=== PATIENT | male | born 1955 | race Caucasian/White ===

== ENCOUNTER 2018-11-22 13:08 | Emergency (ER) | payer BC, OTHER ==
[~2018-11-22] VITALS: Ht 172.7 cm; Wt 104.3 kg
[2018-11-22 13:34] LABS: URINE BILIRUBIN NEGATIVE (Negative); URINE BLOOD NEGATIVE (Negative); URINE CLARITY CLEAR; URINE COLOR YELLOW; URINE GLUCOSE-RANDOM* NEGATIVE (Negative); URINE KETONES NEGATIVE (Negative); URINE LEUKOCYTES TRACE (Negative); URINE NITRITE NEGATIVE (Negative); URINE PROTEIN (DIPSTICK) NEGATIVE (Negative); URINE SPECIFIC GRAVITY 1.015 (1.005-1.035); URINE UROBILINOGEN 0.2 E.U./dl (0.2-1.0)
[2018-11-22 13:41] LABS: ABSOLUTE NEUTROPHILS 7.3 thou/uL (1.4-8.2); BASOPHILS 0.5 % (0.0-2.0); EOSINOPHILS 0.6 % (0.0-3.0); HEMATOCRIT 46.4 % (42.0-52.0); HEMOGLOBIN 16.3 gm/dL (14.0-18.0); LYMPHOCYTES 19.6 % (24.0-44.0); MCH 29.5 pg (26.0-34.0); MCHC 35.1 g/dL (28.0-37.0); MONOCYTES 5.9 % (1.0-8.0); PLATELET COUNT 332 thou/uL (150-400); POLYS 73.4 % (36.0-66.0); RBC 5.53 mil/uL (4.50-6.00); RDW 14.4 % (10.5-14.5)
[2018-11-22 13:44] LABS: SQUAMOUS 0-3 Few /LPF (0-3)
[2018-11-22 13:45] LABS: CASTS None Seen /LPF (None Seen); CRYSTALS None Seen /LPF (None Seen); URINE RBC 0-2 Rare /HPF (0-2); URINE WBC 0-5 Rare /HPF (0-5)
[2018-11-22 13:50] LABS: CALCIUM 9.2 mg/dL (8.5-10.1); CREATININE 1.1 mg/dL (0.7-1.3); POTASSIUM 3.4 mmol/L (3.5-5.1)
[2018-11-22] MEDS ORDERED: COZAAR 25 MG TA25 M1 PO (13:54)
[2018-11-22] MEDS ORDERED: SPIRONOLACTONE25 M1 PO (13:54)
[2018-11-22] MEDS ORDERED: HYDROCHLOROTHIA25 M2 PO (13:54)
[2018-11-22 13:56] LABS: ALBUMIN 3.8 g/dL (3.4-5.0); TOTAL BILIRUBIN 1.1 mg/dL (<0.1-1.0); TOTAL PROTEIN 8.2 g/dL (6.4-8.2)
[2018-11-22 16:18] VITALS: BP 152/88
== END 2018-11-22 16:20 | disposition home or self-care (01) ==
LOC: ER 13:08
PROVIDERS: Emergency Medicine
DX: K42.9 Umbilical hernia without obstruction or gangrene (principal); I10 Essential (primary) hypertension

== ENCOUNTER 2018-11-24 15:05 | Inpatient (IN) | payer BC, OTHER ==
[~2018-11-24] VITALS: Ht 172.7 cm; Wt 106.6 kg
[~2018-11-24 15:05] MED LIST: COZAAR 25 MG TA25 M1 PO; HYDROCHLOROTHIA25 M2 PO; SPIRONOLACTONE25 M1 PO
[2018-11-24 15:41] VITALS: BP 129/87
[2018-11-24] MEDS ORDERED: PROBIOTIC1 EAC1 PO (15:54)
[2018-11-24] MEDS ORDERED: L-ARGININE500 MG PO (15:56)
[2018-11-24] MEDS ORDERED: CO Q-10100 MG PO (15:56)
[2018-11-24] MEDS ORDERED: TURMERIC500 M2 PO (15:57)
[2018-11-24] MEDS ORDERED: AMLODIPINE BESY10 MG PO (15:58)
--- NOTE | 2018-11-24 16:41 | NUR ---
ASSESMENT COMPLETED. VSS. A/O. DENIES PAIN. NO NOTED SOA. NO NV. PT RESTING IN BED APPEARS COMFORTABLE. PLANS FOR SURGERY [place] AT 9AM WITH DR. SHRESTHA. WILL CONT. TO MONITOR.
--- NOTE | 2018-11-24 16:43 | NUR ---
HOME MEDICATIONS SENT TO PHARMACY FOR STORAGE.
[2018-11-24 16:59] LABS: ABSOLUTE NEUTROPHILS 5.1 thou/uL (1.4-8.2); BASOPHILS 0.8 % (0.0-2.0); EOSINOPHILS 1.2 % (0.0-3.0); HEMATOCRIT 44.8 % (42.0-52.0); HEMOGLOBIN 15.7 gm/dL (14.0-18.0); LYMPHOCYTES 22.7 % (24.0-44.0); MCH 29.1 pg (26.0-34.0); MCHC 34.9 g/dL (28.0-37.0); MCV 83.3 fL (80.0-100.0); MONOCYTES 7.9 % (1.0-8.0); PLATELET COUNT 338 thou/uL (150-400); POLYS 67.4 % (36.0-66.0); RBC 5.38 mil/uL (4.50-6.00); RDW 13.7 % (10.5-14.5); WBC 7.5 thou/uL (4.0-11.0)
[2018-11-24 17:23] LABS: ALBUMIN 3.7 g/dL (3.4-5.0); CALCIUM 9.3 mg/dL (8.5-10.1); CREATININE 0.9 mg/dL (0.7-1.3); MAGNESIUM 1.9 mg/dL (1.8-2.4); POTASSIUM 3.3 mmol/L (3.5-5.1); TOTAL BILIRUBIN 0.7 mg/dL (<0.1-1.0); TOTAL PROTEIN 7.9 g/dL (6.4-8.2)
[2018-11-24 19:40] VITALS: BP 145/77
--- NOTE | 2018-11-25 01:13 | NUR ---
Assumed care of pt at 1900. Pt a&o x4. Surgery scheduled for am. NPO after midnight. No c/o pain. IVF and antibiotics infusing. Call light within reach. WIll continue to monitor.
[2018-11-25 05:00] VITALS: BP 154/93
[2018-11-25 05:06] LABS: ABSOLUTE NEUTROPHILS 3.6 thou/uL (1.4-8.2); EOSINOPHILS 2.5 % (0.0-3.0); HEMATOCRIT 41.8 % (42.0-52.0); HEMOGLOBIN 14.8 gm/dL (14.0-18.0); LYMPHOCYTES 29.3 % (24.0-44.0); MCH 29.4 pg (26.0-34.0); MCHC 35.4 g/dL (28.0-37.0); MCV 83.1 fL (80.0-100.0); MONOCYTES 9.7 % (1.0-8.0); PLATELET COUNT 331 thou/uL (150-400); POLYS 57.5 % (36.0-66.0); RBC 5.02 mil/uL (4.50-6.00); RDW 14.1 % (10.5-14.5); WBC 6.3 thou/uL (4.0-11.0)
[2018-11-25 05:17] LABS: CALCIUM 8.2 mg/dL (8.5-10.1); MAGNESIUM 1.9 mg/dL (1.8-2.4); POTASSIUM 3.6 mmol/L (3.5-5.1)
[2018-11-25 07:47] VITALS: BP 161/91
--- NOTE | 2018-11-25 10:13 | NUR ---
Assumed pt care at 7am.Assessment completed.vss.Pt up adlib in the room. 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
[2018-11-25] MEDS ORDERED: ZOFRAN4 MG PO (14:42)
[2018-11-25] MEDS ORDERED: MIRALAX17 GM PO (14:42)
[2018-11-25] MEDS ORDERED: NORCO 5-325 TA1 EACH PO (14:42)
[2018-11-25 16:08] VITALS: BP 116/59
--- NOTE | 2018-11-25 16:57 | NUR ---
ASSESSMENT-PT LIVES IN AN APT ALONE. PRIOR TO SURGERY HE WAS INDEPENDENT OF ADLS AND AMBULATION. HE WAS WORKING AND DRIVING. HE SAYS HIS BROTHER OR SISTER MAY COME TO CHECK ON HIM. PT HAS NOT HAD ANY HH SERVICES IN THE PAST. FOLLOWING TO ASSIST WITH DC PLANNING.
--- NOTE | 2018-11-25 17:06 | NUR ---
Pt returned from recovery room at 1600 in stable condition.Pt was drowsy but arousable.Ice chips given per his request.Pt will stay in hospital till am. No verbal c/o.Will continue to monitor.
[2018-11-25 19:27] VITALS: BP 163/97
--- NOTE | 2018-11-26 01:03 | NUR ---
PT UP WALKING ON THE FORTH FLOOR UNIT WITH EXPLOSION WELDER AND WALKER,GOOD ENDURANCE NOTED.PT WITH LOW GRADE TEMP,TYLENOL ADMINISTERED EFFECTIVE.PT RESTING ON HIS BED AT THIS TIME.URINAL AT BEDSIDE.CALL LIGHT WITHIN REACH.
[2018-11-26 04:55] VITALS: BP 152/93
--- NOTE | 2018-11-26 08:15 | NUR ---
ASSESMENT COMPLETED. VSS. A/O. DENIES PAIN. C/O BLOATING. MEDS GIVEN ORDERED-TOLERATED WELL. ENCOURAGED TO INCREASE AMBULATION. WILL CONT. TO MONITOR.
[2018-11-26 20:00] VITALS: BP 151/75
--- NOTE | 2018-11-27 01:19 | NUR ---
PT STILL C/O OF BLOATING,AMBULATED COUPLE OF TIMES AROUND THE UNIT WITH NO RELIEF.TAP WATER ENEMA ADMINISTERED WITH MINIMAL RESULT.PT WAS OFFERED DULCOLAX SUPPOSITORY,REFUSED IT.PT REQUESTED FOR AND RECEIVED ZOFRAN FOR NAUSEA AND AMBIEN FOR SLEEP.PT SLEEPING ON HIS BED AT THIS TIME.CALL LIGHT WITHIN REACH.
[2018-11-27 04:24] LABS: CALCIUM 8.1 mg/dL (8.5-10.1); CREATININE 0.8 mg/dL (0.7-1.3)
[2018-11-27 04:31] LABS: POTASSIUM 2.9 mmol/L (3.5-5.1)
[2018-11-27 05:30] VITALS: BP 180/86
[2018-11-27 07:35] VITALS: BP 170/76
[2018-11-27 10:41] VITALS: BP 170/76
--- NOTE | 2018-11-27 11:24 | NUR ---
Assessment completed.vss.am meds givne with breakfast and well tolerated. Pt up to br early this am.Reported having moderate stool. Dr Merino and Shaquille here, dc order noted.Pt ambulated in hallways with steady gait.Dc summary completed and reviewed with pt and sister.Rx and copy of dc summary given. Ivf and saline lock dc'd.Pt will be dc home with sister per wc before noon. o
--- NOTE | 2018-11-29 17:07 | PATH ---
[facility] [address] [place] [address] PATHOLOGY RPT PROCEDURE Name: MENAOH GREENE YANDEL Room #: 426-P DIS IN M.R.#: [id number] ������������������ Admission: 11/24/18 ������������������ Date of : 51 Discharge: 11/27/18 Report #: [id number] Path Case #: [id number] [facility] Accession Number: [id number] . 01 Material submitted: . INCARCERATED UMBILICAL HERNIA CONTENTS . 01 Clinical history: . Umbilical hernia . 02 Diagnosis: Incarcerated umbilical hernia contents, repair: - Congested fibrovascular connective tissue associated with acute inflammation and fibrinoid necrosis, compatible with incarceration. - Fragments of fibroadipose tissue with congestion. - Fragments of nerve and vessels. (IUV/db; 11/29/2018) LBQ/11/29/2018 . 02 Electronically signed: . Rona Arriaga MD, Pathologist NPI- [id number] . 01 Gross description: . Received in formalin labeled "Oh Mena, incarcerated umbilical hernia contents," is a 9.7 x 6.3 x 3.2 cm aggregate of turner-brown fibromembranous tissue admixed with pale yellow, lobulated adipose tissue. Serial sectioning reveals yellow-turner cut surfaces. Multiple dark turner-brown possible lymph nodes are noted, ranging from 0.8 to 1.8 cm in maximum dimension. Clothing Examiner fibromembranous and adipose tissue is submitted in cassette A1. Clothing Examiner possible lymph nodes are submitted in cassette A2. Clothing Examiner tubular tissue is submitted in cassette A3. (IUV/DAC/db; 11/29/2018) XDC/XDC . 02 Pathologist provided ICD-10: K42.0 . 02 CPT . 927648 Specimen Comment: A courtesy copy of this report has been sent to Specimen Comment: [phone], . Specimen Comment: Report sent to and Performed at: [address] [facility], [place] [id number] [place] [address] PATHOLOGY RPT PROCEDURE Name: [place] MENA Room #: 426-P DIS IN M.R.#: [id number] ������������������ Admission: 11/24/18 ������������������ Date of : 51 Discharge: 11/27/18 Report #: [id number] Path Case #: [id number] MD Fernando Gavin MD Phone: [phone] Performed at: [address] [id number] MD Rona Arriaga MD Phone: [phone]
== END 2018-11-27 11:50 | disposition home or self-care (01) | DRG 354 ==
LOC: 4E 15:05
PROVIDERS: Internal Medicine; Nurse Practitioner; ADMIT Internal Medicine
PROC: 0WUF4JZ Supplement Abdominal Wall with Synthetic Substitute, Percutaneous Endoscopic Approach (ICD-10-PCS; principal; 2018-11-25)
DX: K42.0 Umbilical hernia with obstruction, without gangrene (principal); L03.316 Cellulitis of umbilicus; I10 Essential (primary) hypertension; K59.09 Other constipation; Z79.899 Other long term (current) drug therapy
CPT/HCPCS: 10783; 50010; 50101; 50249; 50386; 50555; 50558; 50962; 50984; 52265; 53307; 53310; 54022; 54118; 56462; 56524; 56525; 56526; 57092; 57187; 62110; 62900; 65130; 70005